=== PATIENT | male | born 1955 | race Caucasian/White ===

== ENCOUNTER 2025-01-30 08:06 | Outpatient (CLI) | payer MEDICARE, SELFPAY ==
--- NOTE | ~2025-01-30 | CT_ITS ---
[facility] EXAMINATION: CT abdomen pelvis w con COMPARISON: None HISTORY: Palpable abd mass/elevated serum enzymes TECHNIQUE: Axial images were obtained through the abdomen, pelvis post administration of IV contrast. Oral contrast was also administered. Coronal reconstruction images were obtained from the axial views. CT scan performed using dose optimization techniques including the following automated exposure control; adjustment of mA and/or kV; use of iterative reconstruction technique. Automatic exposure control was used to reduce radiation dose. Permanent radiation dose record is archived to PACS. FINDINGS: CT abdomen: LUNG BASES: Lung bases demonstrate scattered calcified granulomas with calcified mediastinal lymph nodes. LIVER: Mild hepatic steatosis. Punctate calcified liver granulomas. Portal vein patent. No intrahepatic biliary duct dilatation. SPLEEN: Punctate calcified splenic granulomas.. KIDNEYS: Right Kidney: Right kidney midpole simple renal cyst 1 x 1 cm. Left Kidney: Unremarkable. No calculi. No hydronephrosis ADRENAL GLANDS: Unremarkable. PANCREAS: Unremarkable. GALLBLADDER/BILIARY: Cholelithiasis. STOMACH AND ESOPHAGUS: Stomach is decompressed. BOWEL/MESENTERY: Moderate fecal content, no colitis or diverticulitis. Appendix normal. Mesentery normal. No dilated small bowel loops. ADENOPATHY/RETROPERITONEUM: No lymphadenopathy. AORTA/VASCULATURE: Normal caliber aorta. FREE FLUID OR FREE AIR: No free fluid.. CT pelvis: SOLID ORGANS/REPRODUCTIVE: Unremarkable. BLADDER: The bladder is decompressed with thickening of the bladder wall consistent with mild cystitis. OSSEOUS STRUCTURES: No sclerotic or lytic lesions. OVERLYING SOFT TISSUES: Small bilateral fat-containing inguinal hernia. Within the soft tissues is no gross abnormality identified with no marker identified to suggest palpable abnormality at the time of the exam. IMPRESSION: No acute intra-abdominal process. Incidental findings above Reviewed, dictated and finalized at location A.
--- NOTE | ~2025-01-30 | US_ITS ---
EXAMINATION: US renal BI, 01/30/2025 8:50 CDT HISTORY: Palpable abd mass/elevated serum enzymes Comparison: None Technique: Momin-scale and color Doppler images were obtained. Findings: KIDNEYS: The renal cortices are intact with no solid masses or calculi, no hydronephrosis Right Kidney: Right kidney superior pole simple appearing cyst 1.9 x 1.9 cm. Right kidney measures 9.9 x 5.7 x 5.9 cm. Left Kidney: Left kidney 10.6 x 4.9 x 4.8 cm, normal. Bladder: The bladder is unremarkable. . Impression: Simple appearing right renal cyst Reviewed, dictated and finalized at location A. Impression: Simple appearing right renal cyst
[2025-01-30 08:40] LABS: Estimated Glomerular Filt Rate 35
== END 2025-01-30 08:07 | disposition home or self-care (01) ==
PROVIDERS: PCP Internal Medicine Infectious Disease; Visit Provider Internal Medicine Infectious Disease
DX: R79.89 Other specified abnormal findings of blood chemistry (principal); R19.00 Intra-abdominal and pelvic swelling, mass and lump, unspecified site; N28.1 Cyst of kidney, acquired
CPT/HCPCS: 74177; 76770; Q9967